=== PATIENT | male | born 1965 | race African-American/Black ===

== ENCOUNTER → 2021-09-22 | Outpatient (CLI) | payer OTHER | LOC: CARD 12:30 | PROVIDERS: ATTEND Family Medicine | DX: I49.9 Cardiac arrhythmia, unspecified (principal) ==

== ENCOUNTER 2021-11-01 05:37 | Outpatient (CLI) | payer OTHER ==
[~2021-11-01] VITALS: Ht 180.3 cm; Wt 98.4 kg
[2021-11-02] MEDS ORDERED: MULT-1056 PO (11:01)
[2021-11-02] MEDS ORDERED: PANT40TA52 PO (11:01)
[2021-11-02] MEDS ORDERED: METO-351 PO (11:01)
== END 2021-11-02 11:07 | disposition home or self-care (01) ==
LOC: PREOP 05:37
PROVIDERS: ATTEND Surgery
DX: Z01.818 Encounter for other preprocedural examination (principal)

== ENCOUNTER → 2021-11-01 | Outpatient (CLI) | payer OTHER ==
[~2021-11-01] MED LIST: METO-351 PO; MULT-1056 PO; PANT40TA52 PO
== END ==
LOC: CARD 10:30
PROVIDERS: ATTEND Internal Medicine Cardiovascular Disease
DX: I10 Essential (primary) hypertension (principal); I25.10 Atherosclerotic heart disease of native coronary artery without angina pectoris
CPT/HCPCS: 93306

== ENCOUNTER 2021-11-09 11:04 | Day surgery (SDC) | payer OTHER ==
[~2021-11-09] VITALS: Ht 180.3 cm; Wt 98.4 kg
[2021-11-09] VITALS (7 sets, daily range): BP systolic 94–146; BP diastolic 57–83
[2021-11-09] MEDS ORDERED: LACTATED RINGERS 1,000 ML IV ONE (11:18)
[2021-11-09] MEDS ORDERED: LACTATED RINGERS 1,000 ML IV STA (11:24)
[2021-11-09] MEDS ORDERED: HURRICAINE EXT TUBE (BENZOCAINE) XX PRN (11:30)
--- NOTE | 2021-11-09 11:36 | Progress Note-Pre Operative ---
Pre-Operative Progress Note Date of Available H&P: Oct 27, 2021 Date H&P Reviewed: Nov 09, 2021 Time H&P Reviewed: 11:35 History & Physical: H&P Reviewed, Patient Examed, No changes noted Pre-Operative Diagnosis: gerd SHELBY DEMPSEY DO Nov 09, 2021 11:36
[2021-11-09] MEDS ORDERED: PROPOFOL INJECTION 50 ML IV ONE (12:45)
[2021-11-09] MEDS ORDERED: MIDAZOLAM 2 MG/2 ML (VERSED) VIAL ONE (12:45)
[2021-11-09] MEDS ORDERED: ONDANSETRON 4 MG/2 ML (SDV) Z0FRAN ONE (13:03)
--- NOTE | 2021-11-09 13:14 | Anesthesia-General Post-Op ---
MAC Patient Condition Mental Status/LOC: Same as Preop Cardiovascular: Satisfactory Nausea/Vomiting: Absent Respiratory: Satisfactory Pain: Controlled Complications: Absent Post Op Complications Complications None Follow Up Care/Instructions Patient Instructions None needed. Anesthesiology Discharge Order Discharge Order Patient is doing well, no complaints, stable vital signs, no apparent adverse anesthesia problems. No complications reported per nursing. DAINA MORRISON DO Nov 09, 2021 13:14
[2021-11-09] MEDS ORDERED: SUCR1TAB36 PO (13:27)
--- NOTE | 2021-11-09 13:28 | Discharge Inst-Simple/Standard ---
Discharge Inst-Standard Discharge Medications New, Converted or Re-Newed RX: Transmitted to Pharmacy Patient Instructions/Follow Up Plan of Care/Instructions/FU: 2 weeks Lucas Activity as Tolerated: Yes Discharge Diet: Regular Diet SHELBY DEMPSEY DO Nov 09, 2021 13:28
--- NOTE | 2021-11-09 18:57 | OPERATIVE REPORT ---
DATE OF SERVICE: 11/09/2021 PREOPERATIVE DIAGNOSIS: Gastroesophageal reflux disease. POSTOPERATIVE DIAGNOSIS: Gastritis. SURGEON: Shelby Zavala DO ANESTHESIA: Per MDA. ESTIMATED BLOOD LOSS: None. COMPLICATIONS: None. INDICATIONS: The patient is a 56-year-old male with GERD symptoms. He understands risks and benefits of procedure and wishes to proceed. Consent was signed in the chart. DESCRIPTION OF PROCEDURE: The patient was taken to the endoscopy suite, placed in left lower recumbent position. Timeout was performed. Scope was inserted in mouth, down the esophagus, stomach and into the duodenum without difficulty. No polyps, masses or ulcerations within the duodenum. Scope was slowly retracted back to stomach where it was further insufflated. In the antrum, areas of gastritis appearance. Biopsy was obtained. Scope was then retroflexed noting no other pathology. Scope was returned to its normal position, slowly withdrawn to distal esophagus. Biopsy of GE junction was obtained. No polyps, masses or ulcerations. Scope was slowly retracted back to completely remove noting no other pathology. The patient tolerated the procedure well without any complications, taken to recovery room in stable condition. RECOMMENDATIONS: The patient will continue on current medication. He is on Protonix. We will add Carafate 1 gram four times a day to see if this causes any improvement and await biopsy results. Further recommendations pending. Job ID: [id number] DocumentID: [id number] Dictated Date: 11/09/2021 13:26:48 Geographic Information Systems Manager Date: 11/09/2021 18:56:26 Dictated By: SHELBY ZAVLAA DO
== END 2021-11-09 14:00 | disposition home or self-care (01) ==
LOC: ENDO 11:04
PROVIDERS: ATTEND Surgery
DX: K29.50 Unspecified chronic gastritis without bleeding (principal); B96.81 Helicobacter pylori [H. pylori] as the cause of diseases classified elsewhere; K21.00 Gastro-esophageal reflux disease with esophagitis, without bleeding; Z87.891 Personal history of nicotine dependence; E66.9 Obesity, unspecified; Z68.30 Body mass index [BMI] 30.0-30.9, adult; Z79.899 Other long term (current) drug therapy

== ENCOUNTER → 2021-11-20 | Outpatient (CLI) | payer OTHER ==
[~2021-11-20] MED LIST changes: +CATHETER FLUSH 10 ML SYR IVP PRN; +SUCR1TAB36 PO
[2021-11-20 09:24] VITALS: BP 156/78
[2021-11-20 09:31] VITALS: BP 189/82
--- NOTE | 2021-11-20 12:06 | Cardiology Stress Test Report ---
Stress Test Report Date of Procedure/Referring: Date of Procedure: Nov 20, 2021 PCP Rizwana Jeffers DO Admitting Physician Admitting Physician: Attending Physician: Sherly Cassidy MD Indications: HTN Baseline Heart Rate: 56 Baseline Blood Pressure: Blood Pressure Systolic: 189 Blood Pressure Diastolic: 82 Vital Signs Date Time Temp Pulse Resp B/P (MAP) Pulse Ox O2 Delivery O2 Flow Rate FiO2 11/20/21 09:24 111 156/78 (104) Baseline Vital Signs Vital Signs Date Time Temp Pulse Resp B/P (MAP) Pulse Ox O2 Delivery O2 Flow Rate FiO2 11/20/21 09:24 111 156/78 (104) Baseline EKG: Baseline EKG: NSR Summary: After explaining the procedure and details to the patient, he signed the consent and was brought to the stress nuclear laboratory. Patient exercised on standard Samir protocol, EKG, heart rate and blood pressure were monitored continuously, resting and stress doses of radio tracer were injected, imaging was acquired and reviewed in the short axis, horizontal long axis and vertical long axis views Patient was able to exercise for a total of 7 minutes on Samir protocol, METs 8.4 Maximum heart rate 154 Maximum blood pressure 224/79 Stress EKG, Minimal nondiagnostic changes Recovery EKG, Return to baseline TID: 1.18 SSS: 4 SDS: 4 EF: 53 Conclusion: 1. Good exercise tolerance for a total of 7 minutes on standard Samir protocol, 8.4 METS achieving 94% of maximum expected heart rate 2. Appropriate heart rate response to exercise with hypertensive response to exercise with peak blood pressure 224/79 return to baseline during recovery 3. Nondiagnostic EKG changes with exercise return to baseline during recovery 4. Motion artifact and diaphragmatic attenuation affecting the quality of the i mages, there is mild decrease uptake at the mid to apical inferior wall with mild reversibility. Overall there is no significant ischemia or infarction on SPECT images 5. Normal left ventricular size with normal contractility, ejection fraction 53% Copy Copies To 1: RIZWANA JEFFERS BASHAR J MD Nov 20, 2021 12:06
== END ==
LOC: CARD 07:30
PROVIDERS: ATTEND Internal Medicine Cardiovascular Disease
DX: I10 Essential (primary) hypertension (principal); I25.10 Atherosclerotic heart disease of native coronary artery without angina pectoris
CPT/HCPCS: 78452; 93017; A9502

== ENCOUNTER → 2022-01-01 | Outpatient (RCR) | payer OTHER ==
[~2022-01-01] MED LIST changes: -CATHETER FLUSH 10 ML SYR IVP PRN
== END ==
LOC: EDSTATUS 12-18 → LAB 12-18 10:05
DX: B96.81 Helicobacter pylori [H. pylori] as the cause of diseases classified elsewhere (principal)
CPT/HCPCS: 36415; 87338

== ENCOUNTER → 2022-06-25 | Outpatient (CLI) | payer OTHER ==
--- NOTE | 2022-06-25 11:12 | Diagnostic Imaging Report ---
PROCEDURE: US Gallbladder. TECHNIQUE: Multiple real-time grayscale images were obtained over the right upper quadrant in various projections. INDICATION: Epigastric pain. Liver is upper limits of normal in size at 17.6 cm. There is diffuse increased echogenicity consistent with hepatic steatosis. Portal vein is patent and shows normal direction of flow. Appears to be a stone within the gallbladder but no wall thickening is seen. There is no biliary ductal dilatation identified. Pancreas somewhat limited due to overlying bowel gas. Visualized aorta is nonaneurysmal. IVC is patent. Right kidney is without calculi or hydronephrosis. There is no ascites. IMPRESSION: 1. Hepatic steatosis. 2. Cholelithiasis without evidence of acute cholecystitis. Dictated by: Dictated on workstation # [id number]
== END ==
LOC: RAD 08:57
PROVIDERS: ATTEND Surgery
DX: K76.0 Fatty (change of) liver, not elsewhere classified (principal); K80.20 Calculus of gallbladder without cholecystitis without obstruction
CPT/HCPCS: 76705